=== PATIENT | female | born 1940 | race Caucasian/White ===

== ENCOUNTER 2017-04-26 11:59 | Day surgery (SDC) | payer BC ==
[2017-04-26] MEDS ORDERED: PROPOFOL 10 MG/ML VIAL IV ONE (12:00)
[2017-04-26] MEDS ORDERED: FENTANYL PF 100MCG/2ML VIAL IV ONE (12:00)
[2017-04-26] MEDS ORDERED: LIDOCAINE 2% MDV (20MG/ML) 20ML VIAL IV ONE (12:00)
--- NOTE | 2017-04-27 13:50 | Operative Note ---
DATE OF SURGERY: 04/26/2017 REFERRING PHYSICIAN: Mahesh Chavez MD PREOPERATIVE DIAGNOSIS: See below. POSTOPERATIVE DIAGNOSIS: See below. PROCEDURE: ESOPHAGOGASTRODUODENOSCOPY. INDICATION: Weight loss, although the patient states she is now starting to gain some weight back. She also complains of some intermittent dysphagia. Intravenous sedation was administered by the Department of Anesthesiology and included Diprivan titrated to effect. PROCEDURE: Following informed consent from this alert individual, including a discussion of the risks and benefits of the procedure and an opportunity for the patient to ask questions, the patient was placed in the left lateral decubitus position. An Olympus [id number] video endoscope was inserted into the esophagus without resistance. The proximal esophagus had a normal appearance with normal folds and distensibility. The mid and distal esophagus demonstrates sub focal spasm, which gave way to the passage of the scope. There were no mucosal changes. The squamocolumnar junction was well defined and approximated the diaphragmatic hiatus. The stomach was entered and found to be normal. The pylorus was patent. The duodenal bulb, sweep and descending duodenum were examined in a serial fashion and found to be normal as well. The endoscope was then withdrawn back into the body of the stomach, where retroflexion accomplished following air insufflation failed to demonstrate abnormalities. The endoscope was then straightened and withdrawn through the esophagus. The patient tolerated the procedure well and was returned to the recovery area in stable condition. IMPRESSION: Unremarkable endoscopy with the exception of spasm in the esophagus, most likely related to presbyesophagus. RECOMMENDATIONS: Patient will be following up with Dr. Mahesh Chavez. As always, thank you for allowing me to participate in the care of your patient. CC: Mahesh Chavez MD [facility]
--- NOTE | 2017-04-27 13:50 | Operative Note ---
DATE OF SURGERY: 04/26/2017 REFERRING PHYSICIAN: Mahesh Chavez MD PREOPERATIVE DIAGNOSIS: See below. POSTOPERATIVE DIAGNOSIS: See below. PROCEDURE: COLONOSCOPY to the cecum. INDICATION: History of polyps, weight loss. The weight loss has been decreasing, and in fact, the patient states she is now gaining back some weight. Colonoscopy is performed at this time for surveillance. Intravenous sedation was administered by the Department of Anesthesiology and included Diprivan titrated to effect. PROCEDURE: Following informed consent from this alert individual, including a discussion of the risks and benefits of the procedure and an opportunity for the patient to ask questions, the patient was placed in the left lateral decubitus position. A digital rectal examination was performed. No abnormalities were noted. Following this, an Olympus [id number] video colonoscope was inserted into the rectum without resistance. The rectal mucosa had a normal appearance, with normal folds and distensibility. The colonoscope was advanced up through the colon to the level of the cecum without much difficulty. Throughout the bowel, the mucosa appeared normal, the folds are normal and the bowel is fairly well distensible. A few scattered diverticula were noted in the sigmoid colon. The cecum was defined by noting the appendiceal orifice and ileocecal valve. Colon preparation was good. From the base of the cecum, the colonoscope was then withdrawn. No additional abnormalities were detected. Diverticulosis was noted in the sigmoid region. Retroflexion of the rectum was endoscopically unremarkable. . The endoscope was straightened and withdrawn. The patient tolerated the procedure well and was returned to the recovery area in stable condition. IMPRESSION: Sigmoid diverticulosis, otherwise unremarkable colonoscopy to the cecum. RECOMMENDATIONS: Patient will be following up with Dr. Mahesh Chavez. As always, thank you for allowing me to participate in the care of your patient. CC: Mahesh Chaevz MD [facility]
== END 2017-04-26 14:10 | disposition home or self-care (01) ==
LOC: HOP 11:59
PROVIDERS: ATTEND Internal Medicine Gastroenterology
DX: Z12.11 Encounter for screening for malignant neoplasm of colon (principal); Z86.010 Personal history of colon polyps; K57.30 Diverticulosis of large intestine without perforation or abscess without bleeding; K22.4 Dyskinesia of esophagus; I10 Essential (primary) hypertension; R63.4 Abnormal weight loss
CPT/HCPCS: 00810; 43235; G0105